=== PATIENT | male | born 1955 | race Caucasian/White ===

== ENCOUNTER 2018-05-11 09:18 | Emergency (ER) | payer SELFPAY ==
[2018-05-11 09:27] VITALS: BP 190/103; PULSE 48; RESP 18; TEMP 36.7; O2SAT 100
--- NOTE | 2018-05-11 09:45 | ED_ITS ---
HPI - Skin/Abscess/Foreign Bdy General Chief complaint: Skin/Abscess/Foreign Body Stated complaint: LUMP ON BACK OF NECK Time Seen by Provider: 05/11/18 09:29 Source: patient and family Mode of arrival: ambulatory Limitations: no limitations History of Present Illness HPI narrative: 62-year-old male comes to the emergency department with complaint of lump of his neck. Patient states he noticed a small lump size of a very small mole in the last week. It has progressively gotten larger and has gotten very painful in the last 2 days. It has felt warm and tender. Patient has not had any drainage. They have been using warm compresses to the area. He denies any severe headaches, no fevers. No difficulty with tightness in the throat or swelling in the throat. He has not had similar issues in the past. It is along the bottom of his hairline. Patient has felt slightly nauseated today but denies any other symptoms. Related Data Previous Rx's Medication Instructions Recorded clindamycin HCl 300 mg PO QID #40 cap 05/11/18 Allergies Allergy/AdvReac Type Severity Reaction Status Date / Time No Known Drug Allergies Allergy Verified 05/11/18 09:29 Review of Systems Review of Systems All systems reviewed & are unremarkable except as noted in HPI and below Constitutional Denies chills and Denies fever(s) ENT Ears, Nose, Mouth, and Throat: Reports neck mass, Reports neck pain, Denies sore throat, Denies throat swelling and Denies tongue swelling Respiratory Denies cough Gastrointestinal Gastrointestinal: Reports nausea and Denies vomiting Musculoskeletal Reports neck pain Integumentary/Breasts Reports erythema Allergic/Immunologic Denies throat swelling and Denies tongue swelling PFSH Medical History Dyslipidemia (Acute) Hypertension (Acute) Surgical History Hx of heart artery stent (Acute) Social History Smoking Status: Former smoker Exam Narrative Exam Narrative: GEN: well nourished, well appearing male, alert and oriented x 3 , patient appears to be in mild distress.HEENT: Atraumatic, pupils are equal round reactive to light, extraocular movements are intact, nares are clear, TMs are clear with no fluid, there is no conjunctival pallor. Throat is clear without any exudates, erythema, tonsillar enlargement or uvular deviation. Patient has a a 3 cm circumferential area of swelling and induration on the left posterior neck, patient has tenderness over the area. There is a small paulson in the central location but unable to express any fluid. There is no fluctuance. Patient does not have any surrounding erythema, he has full range of motion of the neck with no difficulty with flexion extension or rotation. HEART: Regular rate and rhythm without murmur, clicks, rubs. No carotid bruits , pulses are equal in upper and lower extremitiesLUNGS:Lungs clear to auscultation, no wheezes, rales, crackles, chest moves symmetricallyABD:bowel sounds normal, soft, non-tender, no guarding, rebound, rigidity, no masses noted , no hepatosplenomegalyGU: MSCL: Non-tender, no muscle atrophy, muscles strength 5/5 upper and lower extremities, full range of motion, normal gait NEURO:CN 2-12 intact, sensation normal Initial Vital Signs Initial Vital Signs: Vital Signs Temperature 98.0 F 05/11/18 09:27 Pulse Rate 48 L 05/11/18 09:27 Respiratory Rate 18 05/11/18 09:27 Blood Pressure 190/103 H 05/11/18 09:27 Pulse Oximetry 100 05/11/18 09:27 Procedures Abscess I/D Site: neck Side (if applicable): left Sedation/analgesia: none Local Anesthetic: lidocaine 1% Amount of anesthesia used (mL): 3 Technique: incised with #11 blade Amount of fluid expressed (mL): 1 Irrigation: No Packing used?: none Course Orders Ordered: ED Orders 05/11/18 10:52 Wound Culture and Gram Stain Stat Vital Signs - 8 hr 05/11/18 09:27 Temperature 98.0 F Pulse Rate 48 L Respiratory Rate 18 Blood Pressure 190/103 H Pulse Oximetry 100 MDM - Skin/Abscess/Foreign Bdy MDM Narrative Medical decision making narrative: Bedside ultrasound shows a small core of fluid that is less than 0.5 cm in size otherwise there is not a large fluid collection. Patient had I and D a small core of coagulated pus was removed as well as a small amount of purulent fluid. Patient had pressure applied. The area was too small to place any packing. Wound culture was sent and patient was started on antibiotics. Discharge Plan Departure Patient Disposition: Home Clinical Impression: Abscess Discharge Date/Time: 05/11/18 10:34 Interventions: ED Discharge Assessment Last Done: 05/11/18 10:33 Instructions: Incision and Drainage of a Skin Abscess Activity Restrictions/Additional Instructions: You may take ibuprofen and/or Tylenol as needed for pain. You may also take these medications together if needed. Start antibiotics this morning. Wound Care: Keep wound(s) clean and dry. Wash twice daily with soap and water only. Use warm compresses for 2 times daily to the affected area. Do not use over the counter products (alcohol or peroxide)on the wounds unless instructed by a physician. You may use Neosporin or triple antibiotic ointment. If wound condition worsens (increased/expanding redness, developing fluid blisters, or worsening pain), either contact your doctor for an urgent re- assessment , or return to the Emergency Department. Return to the Emergency Department for any new or worsening symptoms. If you are having increasing swelling of the neck, face, tightness or swelling of the throat, difficulty breathing, severe headaches, neck pain or Return if fever greater than 100.4 Fahrenheit, increased swelling, increasing pain or worsening symptoms such as increased discharge or spreading redness. Use warm compresses 3 times daily for 20 minutes to the affected area. If there is packing in place do not pull it out, if it falls out do not try to replace it. Prescriptions: New clindamycin HCl 300 mg capsule 300 mg PO QID Qty: 40 RF: 0
[2018-05-11 10:24] VITALS: BP 154/85; PULSE 48; RESP 16; O2SAT 95
== END 2018-05-11 10:34 | disposition home or self-care (01) ==
PROVIDERS: Emergency Provider Emergency Medicine
DX: L02.11 Cutaneous abscess of neck (principal)
CPT/HCPCS: 87070; 87205; 99282; 99283